=== PATIENT | female | born 1995 | race Caucasian/White ===

== ENCOUNTER 2019-08-06 05:26 | Inpatient (IN) | payer MEDICAID ==
[~2019-08-06] VITALS: Ht 180.3 cm; Wt 80.3 kg
[2019-08-06] MEDS ORDERED: LACTATED RINGERS 1000ML 1,000 ML IV PRN (05:31)
[2019-08-06 06:02] LABS: APPEARANCE,URINE Clear (CLEAR); BILIRUBIN,URINE Negative (NEGATIVE); COLOR,URINE Yellow (YELLOW); GLUCOSE, URINE (UA) Negative (NEGATIVE); KETONES,URINE Negative (NEGATIVE); LEUKOCYTE ESTERASE ,URINE Small (NEGATIVE); NITRATE,URINE Negative (NEGATIVE); OCCULT BLOOD,URINE Small (NEGATIVE); PH,URINE 6.5 (5.0-8.0); PROTEIN,URINE Negative (NEGATIVE)
[2019-08-06 06:06] LABS: BACTERIA,URINE None Seen /HPF (None Seen); SQUAMOUS EPITHELIAL CELL,UR Moderate /HPF (0-2)
[2019-08-06 06:08] LABS: AMPHET/METH SCREEN,URINE NEGATIVE (NEGATIVE); BARBITURATE SCREEN, URINE NEGATIVE (NEGATIVE); BENZODIAZEPINES SCREEN,URINE NEGATIVE (NEGATIVE); CANNABINOID SCREEN,URINE NEGATIVE (NEGATIVE); COCAINE SCREEN,URINE NEGATIVE (NEGATIVE); OPIATE SCREEN,URINE NEGATIVE (NEGATIVE); PHENCYCLIDINE SCREEN,URINE NEGATIVE (NEGATIVE)
[2019-08-06 06:28] LABS: MEAN CORPUSCULAR HEMOGLOBIN 29.2 pg (27.0-33.0); MEAN CORPUSCULAR HGB CONC 32.6 g/dL (32.0-36.0); MEAN CORPUSCULAR VOLUME 89.5 fL (79-99); RED BLOOD CELL COUNT(AUTO) 3.91 MIL/uL (4.00-5.50); RED CELL DISTRIBUTION WIDTH 13.2 % (11.0-15.5)
[2019-08-06] MEDS ORDERED: ACYC200C PO (06:32)
[2019-08-06 06:43] VITALS: BP 108/61
[2019-08-06] MEDS ORDERED: PROMETHAZINE HCL 25 MG/ML 1ML AMPULE IM SCH (06:45)
[2019-08-06] MEDS ORDERED: MEPERIDINE-PF 50 MG/ML SYG IVP SCH (06:45)
[2019-08-06] MEDS ORDERED: LACTATED RINGERS 500 ML 500 ML IV PRN (06:45)
[2019-08-06] MEDS ORDERED: ROPIVACAINE 0.2% 100ML VIAL 100 ML EP SCH (06:45)
[2019-08-06] MEDS ORDERED: EPHEDRINE SULFATE 50 MG/ML AMPULE IVP PRN (06:45)
[2019-08-06] MEDS ORDERED: NALOXONE HCL 0.4 MG/1 ML ML IV PRN (06:45)
[2019-08-06] MEDS ORDERED: MEPERIDINE-PF 50 MG/ML SYG ONE (06:49)
[2019-08-06] MEDS ORDERED: OXYTOCIN-LR 20 UNITS/1000 ML 1,000 ML IV ONE (07:55)
[2019-08-06] MEDS ORDERED: MEASLES/MUMPS/RUBELLA VACCINE, LIVE 0.5 ML/VIAL SQ PRN (09:15)
[2019-08-06] MEDS ORDERED: ACETAMINOPHEN 325 MG TAB PO PRN (09:15)
[2019-08-06] MEDS ORDERED: OXYTOCIN-LR 20 UNITS/1000 ML 1,000 ML IV SCH (09:15)
[2019-08-06] MEDS ORDERED: BENZOCAINE/LANOLIN/ALOE VERA 60 ML AEROSOL TP PRN (09:15)
[2019-08-06] MEDS ORDERED: DIPH,PERTUSS(ACELL),TET VAC/PF 0.5 ML VIAL IM PRN (09:15)
[2019-08-06] MEDS ORDERED: LANOLIN 30GM OINTMENT TP PRN (09:15)
[2019-08-06] MEDS ORDERED: WITCH HAZEL 1 PAD TP PRN (09:15)
[2019-08-06] MEDS: IBUPROFEN 600 MG TABLET PO PRN (13:46)
[2019-08-06 13:57] VITALS: BP 120/59
[2019-08-06 16:00] VITALS: BP 107/57
[2019-08-06 19:15] VITALS: BP 125/74
[2019-08-06] MEDS: ACETAMINOPHEN-CODEINE 300/30MG TAB PO PRN (19:59)
--- NOTE | 2019-08-06 20:10 | NUR ---
PT IS AWAKE AND ALERT HOLDING INFANT. WRITTEN DISCHARGE INSTRUCTIONS GIVEN TO PATIENT. ALL DOCUMENTS EXPLAINED TO PT. PT VERBALIZED UNDERSTANDING. ALL QUESTIONS ANSWERED AT THIS TIME. PT WAS COOPERATIVE, CALM, AND CONTENT. CALL LIGHT IN REACH.
[2019-08-06] MEDS: DOCUSATE SODIUM 100 MG CAP PO SCH (20:56)
--- NOTE | 2019-08-06 22:20 | NUR ---
PT REPORTS WANTING TO SHOWER. PT DENIES FEELING DIZZY OR FAINT. TOWELS, NEW GOWN, AND TOILETRIES GIVEN. PT INSTRUCTED ON USE OF CALL LIGHT IN BATHROOM IN CASE OF EMERGENCIES. PT VERBALIZED UNDERSTANDING. BEING HELD BY FATHER OF BABY AT BEDSIDE. CALL LIGHT IN REACH OF FOB. PT TOLERATED SHOWER WELL. NO S/S OF DISTRESS. PT IN BED HOLDING INFANT. SIDE RAILS UP X2. AT BEDSIDE. CALL LIGHT IN REACH.
[2019-08-06 23:50] VITALS: BP 105/65
[2019-08-07] MEDS: ACETAMINOPHEN-CODEINE 300/30MG TAB PO PRN ×3 (00:21→10:19)
[2019-08-07 03:45] VITALS: BP 90/59
--- NOTE | 2019-08-07 07:10 | NUR ---
REPORT RECEIVED FROM Radha HARPER RN AND PATIENT CARE TRANSFERED AT THIS TIME.
[2019-08-07 07:35] VITALS: BP 113/76
--- NOTE | 2019-08-07 07:35 | NUR ---
VITAL SIGNS OBTAINED AND ARE WITHIN NORMAL LIMITS. STATES HAVING PAIN OF 3 AND IS MAINLY CRAMPING. ADDITIONAL FAMILY HISTORY OBTAINED AND PATIENT INSTRUCTED ON MEDICATIONS AVAIL FOR PAIN. PATIENT HAS NO IV AND DENIES ANY DIZZINESS OR FEELING FAINT ON AMBULATION.
[2019-08-07] MEDS ORDERED: PREN-68 PO (08:39)
[2019-08-07] MEDS: DOCUSATE SODIUM 100 MG CAP PO SCH (08:48)
[2019-08-07] MEDS: IBUPROFEN 600 MG TABLET PO PRN (08:50)
[2019-08-07 09:03] LABS: RAPID PLASMA REAGIN NONREACTIVE (NONREACTIVE)
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
--- NOTE | 2019-08-07 11:00 | NUR ---
DISCHARGE INSTRUCTIONS GIVEN AND COVID 19 INFO PROVIDED WITH DISCHARGE. PATIENT STATES FEELING A LITTLE BETTER AFTER MEDICATED WITH TYLENOL #3. DISCHARGE GIVEN AND VERBALIZED UNDERSTANDING INSTRUCTIONS GIVEN. INSTRUCTED ON USE OF MOTRIN AND TYLENOL AFTER DISCHARGE NEEDED FOR PAIN.
[2019-08-07 12:00] VITALS: BP 107/71
--- NOTE | 2019-08-07 12:00 | NUR ---
VITAL SIGNS DONE AND ARE WNL. PATIENT BONDING WELL WITH AND DISCHARGE ON BABY BEING DONE AT THIS TIME.
--- NOTE | 2019-08-07 12:20 | NUR ---
PATIENT WAS TAKEN VIA W/C TO FAMILY VEHICLE CARRYING BABY IN [place] AND WAS DISCHARGED TO HER SPOUSE IN STABLE CONDITION. PATIENT DENIES PAIN AND TOLERATING ACTIVITY WELL.
[2019-08-08 07:13] LABS: HEPATITIS Bs ANTIGEN SCREEN P Negative (Negative)
== END 2019-08-07 12:20 | disposition home or self-care (01) | DRG 560 ==
LOC: EDH 05:26 → LDH 05:27 → OBSVTOIN 05:27 → WSH 13:36
PROVIDERS: ADMIT Obstetrics & Gynecology; ATTEND Obstetrics & Gynecology
PROC: 10E0XZZ Delivery of Products of Conception, External Approach (ICD-10-PCS; principal; 2019-08-06)
PROC: 0W8NXZZ Division of Female Perineum, External Approach (ICD-10-PCS; 2019-08-06)
PROC: 3E0R3BZ Introduction of Anesthetic Agent into Spinal Canal, Percutaneous Approach (ICD-10-PCS; 2019-08-06)
PROC: 00HU33Z Insertion of Infusion Device into Spinal Canal, Percutaneous Approach (ICD-10-PCS; 2019-08-06)
PROC: 3E0234Z Introduction of Serum, Toxoid and Vaccine into Muscle, Percutaneous Approach (ICD-10-PCS; 2019-08-06)
PROC: 3E0134Z Introduction of Serum, Toxoid and Vaccine into Subcutaneous Tissue, Percutaneous Approach (ICD-10-PCS; 2019-08-06)
DX: O69.81X0 Labor and delivery complicated by cord around neck, without compression, not applicable or unspecified (principal); Z37.0 Single live birth; O24.12 Pre-existing type 2 diabetes mellitus, in childbirth; E11.9 Type 2 diabetes mellitus without complications; O99.344 Other mental disorders complicating childbirth; O99.62 Diseases of the digestive system complicating childbirth; F32.9 Major depressive disorder, single episode, unspecified; K21.9 Gastro-esophageal reflux disease without esophagitis; F41.9 Anxiety disorder, unspecified; Z23 Encounter for immunization; Z3A.38 38 weeks gestation of pregnancy
CPT/HCPCS: 36415; 80305; 81001; 85027; 86592; 86701; 86850; 86900; 86901; 87340; 87390; 90715; A4314; A4606; G0378; J2175; J2590; J2795; J7120